=== PATIENT | male | born 1980 | race Caucasian/White ===

== ENCOUNTER 2022-08-30 19:22 | Inpatient (IN) | payer OTHER, SELFPAY ==
--- NOTE | ~2022-08-30 | XR_ITS ---
EXAMINATION: XR FOOT, RIGHT CLINICAL INFORMATION: Heel pain COMPARISON: None available. TECHNIQUE: AP, lateral, and oblique views of the right foot. FINDINGS: There is a small retrocalcaneal enthesophyte. The ankle mortise and subtalar joints are normal. No visible acute fracture or dislocation seen. The soft tissues are normal. XR/XR foot RT 2V IMPRESSION: Small retrocalcaneal enthesophyte. No visible acute fracture or dislocation seen.
--- NOTE | ~2022-08-30 | US_ITS ---
EXAMINATION: US soft tissue right ankle CLINICAL INFORMATION: Swelling edema erythema evaluate for abscess COMPARISON: None available at the time of this dictation. TECHNIQUE: High-frequency linear transducer ultrasound utilized, area of interest scanned, soft tissue subcutaneous area right ankle region. FINDINGS: No ultrasound evidence of soft tissue mass, cyst or abscess, or abnormal distortion. US/US extremity nonvascular IMPRESSION: No ultrasound evidence of loculated fluid collection abscess.
--- NOTE | ~2022-08-30 | XR_ITS ---
EXAMINATION: XR CHEST CLINICAL INFORMATION: Chest pain COMPARISON: None available. TECHNIQUE: Frontal view of the chest was obtained. FINDINGS: No significant abnormality is noted involving the heart, lungs, mediastinum, bony thorax or soft tissues. XR/XR chest 1V IMPRESSION: Unremarkable chest examination.
[2022-08-30 19:28] VITALS: BP 110/80; PULSE 116
--- NOTE | 2022-08-30 19:31 | ECG_ITS ---
Test Reason : CHEST PAIN Blood Pressure : / mmHG Vent. Rate : 104 BPM Atrial Rate : 104 BPM P-R Int : 126 ms QRS Dur : 074 ms QT Int : 326 ms P-R-T Axes : 031 -27 025 degrees QTc Int : 428 ms Sinus tachycardia Otherwise normal ECG No previous ECGs available Referred By: Alessandro Teresa Electronically Signed By:Wilder Saucedo
[2022-08-30 19:41] VITALS: BP 137/92; PULSE 117; RESP 20; TEMP 36.8; O2SAT 95; BMI 28.1
--- NOTE | 2022-08-30 19:43 | ED.CHESTPAIN ---
HPI - Chest Pain General Chief Complaint: General Medical <DEQUAN Youssef - Last Filed: 08/30/22 19:48> Stated Complaint: Chest pain <DEQUAN Youssef - Last Filed: 08/30/22 19:48> Time Seen by Provider: 08/30/22 21:20 <DEQUAN Youssef - Last Filed: 08/30/22 19:48> Source: patient <Kareem Suoth DO - Last Filed: 08/30/22 21:47> Mode of arrival: ambulatory <Kareem South DO - Last Filed: 08/30/22 21:47> Limitations: no limitations <Kareem South DO - Last Filed: 08/30/22 21:47> History of Present Illness MD complaint: chest pain <Kareem South DO - Last Filed: 08/30/22 21:47> Related Data Allergies/Adverse Reactions: Allergies Allergy/AdvReac Type Severity Reaction Status Date / Time No Known Allergies Allergy Verified 08/30/22 19:48 <DEQUAN Youssef - Last Filed: 08/30/22 19:48> [facility] Social History Social History: Social History Advance Directives: No Advance Directives Information Provided: Yes <DEQUAN Youssef - Last Filed: 08/30/22 19:48> Physical Exam Vital Signs: Vital Signs: Last Vital Signs Temp 97.8 F 08/30/22 21:10 Pulse 107 H 08/30/22 21:10 Resp 08/30/22 21:10 BP 133/94 H 08/30/22 21:10 Pulse Ox 96 08/30/22 21:10 O2 Del Method Room Air 08/30/22 21:10 BMI result Body Mass Index 28.1 <DEQUAN Youssef - Last Filed: 08/30/22 19:48> Vital Signs: Last Vital Signs Temp 97.8 F 08/30/22 21:10 Pulse 107 H 08/30/22 21:10 Resp 18 08/30/22 21:10 BP 133/94 H 08/30/22 21:10 Pulse Ox 96 08/30/22 21:10 O2 Del Method Room Air 08/30/22 21:10 BMI result Body Mass Index 28.1 <Kareem South DO - Last Filed: 08/30/22 21:47> Course Course Course Narrative: This is an RME: Additional HPI, ROS, PE not included below will be deferred to primary provider. This is a 41 year old male presenting to the ED for evaluation of CP, palpitations, SOB, bodyaches X24 hours. Patient has been walking for 24 hours straight. Walked from [place] to [place] was found by PD, complaining of muscle aches and pains PE benign Plan- labs, ekg, cpk <DEQUAN Youssef - Last Filed: 08/30/22 19:48> Medical Decision Making Medical Decision Making MDM Narrative: Since patient to wait 2 hours prior to being seen labs did show the patient was in acute rhabdomyolysis also patient fluids at things patient benefit from admission. <Kareem South DO - Last Filed: 08/30/22 21:47> Differential Diagnosis Differential Diagnoses: The differential diagnosis associated with the presentation includes <Kareem South DO - Last Filed: 08/30/22 21:47> Concern for rhabdomyolysis the patient is walking for several hours also with chest pain all rule out ACS that seems less likely will check electrolytes which is patient is not kidney failure. <Kareem South DO - Last Filed: 08/30/22 21:47> Admission/Observation Consideration of admission/observation: Escalation of care including admission/observation considered <Kareem South DO - Last Filed: 08/30/22 21:47> Patient will be admitted for rhabdomyolysis <Kareem South DO - Last Filed: 08/30/22 21:47> Consult Healthcare Provider Management of the patient was discussed with: Hospitalist <Kareem South DO - Last Filed: 08/30/22 21:47> I spoke with Dr. Jacobs about his road malaise who agreed with the patient would benefit from [place]. <Kareem South DO - Last Filed: 08/30/22 21:47> Lab Data Result Diagrams: 08/30/22 20:34 08/30/22 20:34 <DEQUAN Youssef - Last Filed: 08/30/22 19:48> Labs: Lab Results 08/30/22 08/30/22 08/30/22 Range/Units 20:34 20:34 20:34 WBC 20.6 H (4.8-10.8) X10*3/uL RBC 4.90 (4.60-5.80) X10*6/uL Hgb 14.6 (14.0-18.0) g/dl Hct 42.4 (42.0-52.0) % MCV 86.5 (80.0-98.0) fL MCH 29.8 (27.0-33.0) pg MCHC 34.4 (31.0-36.0) g/dl RDW 12.6 (11.0-16.0) % Plt Count 376 (160-400) X10*3/uL MPV 9.1 L (9.4-12.4) fL Immature Gran % (Auto) 0.4 (0.0-0.4) % Neut % (Auto) 88.3 H (45-73) % Lymph % (Auto) 3.9 L (20-40) % Stephen[place] % (Auto) 7.1 (2-11) % Eos % (Auto) 0.1 (0-4) % Baso % (Auto) 0.2 (0-2) % Lymph # (Auto) 0.8 L (1.2-4.9) X10*3/uL [place] # (Auto) 1.5 H (0.1-1.2) X10*3/uL Eos # (Auto) 0.0 (0.0-0.4) X10*3/uL Baso # (Auto) 0.1 (0.0-0.2) X10*3/uL Abs Immat Gran (auto) 0.08 H (0.00-0.03) X10*3/uL Absolute Neuts (auto) 18.1 H (2.0-8.3) x10*3/uL Absolute Nucleated RBC 0.000 (0.0-0.012) X10*3/uL Nucleated RBC % (auto) 0.0 (0.0-0.2) /100WBC D-Dimer High Sensitivty NG/ML Sodium 137 (135-145) mmol/L Potassium 5.1 (3.3-5.1) mmol/L Chloride 100 (96-108) mmol/L Carbon Dioxide 21 L (22-29) mmol/L Anion Gap 21 H (12-20) BUN 28 H (9-16) mg/dL Creatinine 1.18 (0.5-1.4) mg/dL Estim Creat Clear Calc 86.0 Estimated GFR > 60 Random Glucose 110 (60-115) mg/dL Calcium 10.0 (8.4-10.2) mg/dL Magnesium 1.9 (1.6-2.6) mg/dL Total Bilirubin 2.9 H (0.0-1.0) mg/dL AST 53 H (5-37) U/L ALT 48 H (0-40) U/L Alkaline Phosphatase 118 H (39-117) U/L Total Creatine Kinase (38-174) U/L Troponin I High Sens 8.9 (<3.5-35.0) ng/L Total Protein 7.9 (6.5-8.0) g/dL Albumin 4.5 (3.5-5.0) g/dL COVID-19 (CLAUDIA) (Negative) COVID-19 Clin Com 08/30/22 08/30/22 08/30/22 Range/Units 20:34 20:34 20:34 WBC (4.8-10.8) X10*3/uL RBC (4.60-5.80) X10*6/uL Hgb (14.0-18.0) g/dl Hct (42.0-52.0) % MCV (80.0-98.0) fL MCH (27.0-33.0) pg MCHC (31.0-36.0) g/dl RDW (11.0-16.0) % Plt Count (160-400) X10*3/uL MPV (9.4-12.4) fL Immature Gran % (Auto) (0.0-0.4) % Neut % (Auto) (45-73) % Lymph % (Auto) (20-40) % Stephen[place] % (Auto) (2-11) % Eos % (Auto) (0-4) % Baso % (Auto) (0-2) % Lymph # (Auto) (1.2-4.9) X10*3/uL [place] # (Auto) (0.1-1.2) X10*3/uL Eos # (Auto) (0.0-0.4) X10*3/uL Baso # (Auto) (0.0-0.2) X10*3/uL Abs Immat Gran (auto) (0.00-0.03) X10*3/uL Absolute Neuts (auto) (2.0-8.3) x10*3/uL Absolute Nucleated RBC (0.0-0.012) X10*3/uL Nucleated RBC % (auto) (0.0-0.2) /100WBC D-Dimer High Sensitivty < 150 NG/ML Sodium (135-145) mmol/L Potassium (3.3-5.1) mmol/L Chloride (96-108) mmol/L Carbon Dioxide (22-29) mmol/L Anion Gap (12-20) BUN (9-16) mg/dL Creatinine (0.5-1.4) mg/dL Estim Creat Clear Calc Estimated GFR Random Glucose (60-115) mg/dL Calcium (8.4-10.2) mg/dL Magnesium (1.6-2.6) mg/dL Total Bilirubin (0.0-1.0) mg/dL AST (5-37) U/L ALT (0-40) U/L Alkaline Phosphatase (39-117) U/L Total Creatine Kinase 1501 H (38-174) U/L Troponin I High Sens (<3.5-35.0) ng/L Total Protein (6.5-8.0) g/dL Albumin (3.5-5.0) g/dL COVID-19 ([facility]UDIA) Negative (Negative) COVID-19 Clin Com See Note <DEQUAN Youssef - Last Filed: 08/30/22 19:48> Lab Results 08/30/22 08/30/22 08/30/22 Range/Units 20:34 20:34 20:34 WBC 20.6 H (4.8-10.8) X10*3/uL RBC 4.90 (4.60-5.80) X10*6/uL Hgb 14.6 (14.0-18.0) g/dl Hct 42.4 (42.0-52.0) % MCV 86.5 (80.0-98.0) fL MCH 29.8 (27.0-33.0) pg MCHC 34.4 (31.0-36.0) g/dl RDW 12.6 (11.0-16.0) % Plt Count 376 (160-400) X10*3/uL MPV 9.1 L (9.4-12.4) fL Immature Gran % (Auto) 0.4 (0.0-0.4) % Neut % (Auto) 88.3 H (45-73) % Lymph % (Auto) 3.9 L (20-40) % [place] % (Auto) 7.1 (2-11) % Eos % (Auto) 0.1 (0-4) % Baso % (Auto) 0.2 (0-2) % Lymph # (Auto) 0.8 L (1.2-4.9) X10*3/uL [place] # (Auto) 1.5 H (0.1-1.2) X10*3/uL Eos # (Auto) 0.0 (0.0-0.4) X10*3/uL Baso # (Auto) 0.1 (0.0-0.2) X10*3/uL Abs Immat Gran (auto) 0.08 H (0.00-0.03) X10*3/uL Absolute Neuts (auto) 18.1 H (2.0-8.3) x10*3/uL Absolute Nucleated RBC 0.000 (0.0-0.012) X10*3/uL Nucleated RBC % (auto) 0.0 (0.0-0.2) /100WBC D-Dimer High Sensitivty NG/ML Sodium 137 (135-145) mmol/L Potassium 5.1 (3.3-5.1) mmol/L Chloride 100 (96-108) mmol/L Carbon Dioxide 21 L (22-29) mmol/L Anion Gap 21 H (12-20) BUN 28 H (9-16) mg/dL Creatinine 1.18 (0.5-1.4) mg/dL Estim Creat Clear Calc 86.0 Estimated GFR > 60 Random Glucose 110 (60-115) mg/dL Calcium 10.0 (8.4-10.2) mg/dL Magnesium 1.9 (1.6-2.6) mg/dL Total Bilirubin 2.9 H (0.0-1.0) mg/dL AST 53 H (5-37) U/L ALT 48 H (0-40) U/L Alkaline Phosphatase 118 H (39-117) U/L Total Creatine Kinase (38-174) U/L Troponin I High Sens 8.9 (<3.5-35.0) ng/L Total Protein 7.9 (6.5-8.0) g/dL Albumin 4.5 (3.5-5.0) g/dL COVID-19 ([facility]UDIA) (Negative) COVID-19 Clin Com 08/30/22 08/30/22 08/30/22 Range/Units 20:34 20:34 20:34 WBC (4.8-10.8) X10*3/uL RBC (4.60-5.80) X10*6/uL Hgb (14.0-18.0) g/dl Hct (42.0-52.0) % MCV (80.0-98.0) fL MCH (27.0-33.0) pg MCHC (31.0-36.0) g/dl RDW (11.0-16.0) % Plt Count (160-400) X10*3/uL MPV (9.4-12.4) fL Immature Gran % (Auto) (0.0-0.4) % Neut % (Auto) (45-73) % Lymph % (Auto) (20-40) % [place] % (Auto) (2-11) % Eos % (Auto) (0-4) % Baso % (Auto) (0-2) % Lymph # (Auto) (1.2-4.9) X10*3/uL [place] # (Auto) (0.1-1.2) X10*3/uL Eos # (Auto) (0.0-0.4) X10*3/uL Baso # (Auto) (0.0-0.2) X10*3/uL Abs Immat Gran (auto) (0.00-0.03) X10*3/uL Absolute Neuts (auto) (2.0-8.3) x10*3/uL Absolute Nucleated RBC (0.0-0.012) X10*3/uL Nucleated RBC % (auto) (0.0-0.2) /100WBC D-Dimer High Sensitivty < 150 NG/ML Sodium (135-145) mmol/L Potassium (3.3-5.1) mmol/L Chloride (96-108) mmol/L Carbon Dioxide (22-29) mmol/L Anion Gap (12-20) BUN (9-16) mg/dL Creatinine (0.5-1.4) mg/dL Estim Creat Clear Calc Estimated GFR Random Glucose (60-115) mg/dL Calcium (8.4-10.2) mg/dL Magnesium (1.6-2.6) mg/dL Total Bilirubin (0.0-1.0) mg/dL AST (5-37) U/L ALT (0-40) U/L Alkaline Phosphatase (39-117) U/L Total Creatine Kinase 1501 H (38-174) U/L Troponin I High Sens (<3.5-35.0) ng/L Total Protein (6.5-8.0) g/dL Albumin (3.5-5.0) g/dL COVID-19 ([facility]UD[facility]) Negative (Negative) COVID-19 Clin Com See Note <Kareem South DO - Last Filed: 08/30/22 21:47> Discharge Plan Discharge Clinical Impression: Chest pain, Exertional rhabdomyolysis <DEQUAN Youssef - Last Filed: 08/30/22 19:48> Patient Disposition: Admitted As Inpatient <DEQUAN Youssef - Last Filed: 08/30/22 19:48>
[2022-08-30 20:39] LABS: MANUAL DIFF FLAG NO
[2022-08-30 20:40] LABS: Basophils Absolute Auto 0.1 X10*3/uL (0.0-0.2); Basophils Percent Auto 0.2 % (0-2); Eosinophils Percent Auto 0.1 % (0-4); Hematocrit 42.4 % (42.0-52.0); Hemoglobin 14.6 g/dl (14.0-18.0); Imm Gran Abs Auto 0.08 X10*3/uL (0.00-0.03); Imm Gran Pct Auto 0.4 % (0.0-0.4); Lymphocytes Absolute Auto 0.8 X10*3/uL (1.2-4.9); Lymphocytes Percent Auto 3.9 % (20-40); Mean Corpuscular HGB Conc 34.4 g/dl (31.0-36.0); Mean Corpuscular Hemoglobin 29.8 pg (27.0-33.0); Mean Corpuscular Volume 86.5 fL (80.0-98.0); Mean Platelet Volume 9.1 fL (9.4-12.4); Monocytes Absolute Auto 1.5 X10*3/uL (0.1-1.2); Monocytes Percent Auto 7.1 % (2-11); Neutrophils Absolute Auto 18.1 x10*3/uL (2.0-8.3); Neutrophils Percent Auto 88.3 % (45-73); Platelet Count 376 X10*3/uL (160-400); Red Cell Distribution Width 12.6 % (11.0-16.0); White Blood Count 20.6 X10*3/uL (4.8-10.8)
[2022-08-30 20:53] LABS: COVID-19 Test Negative (Negative); IDNOW Serial# 08D9AD1C
[2022-08-30 20:56] LABS: D Dimer High Sensitivity < 150 NG/ML
[2022-08-30 20:58] LABS: Alanine Aminotransferase 48 U/L (0-40); Albumin Level 4.5 g/dL (3.5-5.0); Alkaline Phosphatase 118 U/L (39-117); Anion Gap 21 (12-20); Aspartate Amino Transferase 53 U/L (5-37); Bilirubin Total 2.9 mg/dL (0.0-1.0); Blood Urea Nitrogen 28 mg/dL (9-16); Carbon Dioxide 21 mmol/L (22-29); Chloride 100 mmol/L (96-108); Estimated Glomerular Filt Rate > 60; Glucose Random 110 mg/dL (60-115); Magnesium 1.9 mg/dL (1.6-2.6); Potassium 5.1 mmol/L (3.3-5.1); Sodium 137 mmol/L (135-145); Total Protein 7.9 g/dL (6.5-8.0)
[2022-08-30 21:05] LABS: Troponin-I High Sensitivity 8.9 ng/L (<3.5-35.0)
--- NOTE | 2022-08-30 21:07 | PC.NURSE ---
MD South notified of critical CK.
[2022-08-30 21:10] VITALS: BP 133/94; PULSE 107; RESP 18; TEMP 36.6; O2SAT 96
--- NOTE | 2022-08-30 21:36 | P.HPHOSP_ITS ---
History of Present Illness Date of Service: 08/30/22 Chief Complaint: Bodyache and pain This is a 41-year-old male with no pertinent past medical history and not on prescription medications who presents to the emergency department for evaluation of diffuse body aches. Patient states that he has been walking for the last 24 hours straight. Patient walked from [place] to [place] and got lost. He was found by PD and he was complaining of diffuse muscle aches and pains. Patient states he did not have anything to eat or drink. Had some ice chips along the way. No similar complaints in the past. Patient denies alcohol use but does endorse tobacco smoking. He denies fever, chills, palpitations, shortness of breath, abdominal pain, changes in urinary or bowel habits. In the emergency department, CK found to be significantly elevated Review of Systems Constitutional: Constitutional: Reports fatigue, Reports lethargy and Reports malaise Cardiovascular: Cardiovascular: Reports no additional cardiovascular complaints Respiratory: Respiratory: Reports no additional respiratory complaints Gastrointestinal: Gastrointestinal: Reports no additional gastrointestinal complaints Genitourinary: Genitourinary: Reports no additional male genitourinary complaints Musculoskeletal: Musculoskeletal: Reports myalgias Endocrine: Endocrine: Reports fatigue PMFSH Pertinent family history: No family history of early CAD Surgical History History of appendectomy Social History Advance Directives: No Advance Directives Information Provided: Yes Meds Allergies Allergy/AdvReac Type Severity Reaction Status Date / Time No Known Allergies Allergy Verified 08/30/22 19:48 Active Medications: Current Medications Sodium Chloride (Ns) 1,000 mls @ 999 mls/hr IV .Q1H1M CHIOMA Stop: 08/30/22 22:30 Sodium Chloride (Ns) 1,000 mls @ 200 mls/hr IVCONT .Q5H CHIOMA Stop: 08/31/22 02:44 Pharmacy Consult (Consult Rx Perform Med Rec) 1 each MISCELLANE ONCE PRN PRN Reason: Consult order Home Medications Medication Instructions Recorded Confirmed Last Taken Type No Known Home Meds 08/30/22 08/30/22 Unknown History Physical Exam Vital Signs and Narrative: Vital Signs: Last Vital Signs Temp 97.8 F 08/30/22 21:10 Pulse 107 H 08/30/22 21:10 Resp 18 08/30/22 21:10 BP 133/94 H 08/30/22 21:10 Pulse Ox 96 08/30/22 21:10 O2 Del Method Room Air 08/30/22 21:10 BMI result Body Mass Index 28.1 Middle-aged male lying in bed in no distress Neck supple, no JVD Tachycardic with regular rhythm, S1-S2 heard Regular breath sounds bilaterally, no wheezing or crackles appreciated Abdomen soft nontender, no guarding, no rigidity Patient is awake, alert and oriented to self, place, time and person ; no focal motor deficit Psych: Normal mood No pedal edema Results Labs 08/30/22 20:34 08/30/22 20:34 Labs: Laboratory Results - last 24 hr 08/30/22 08/30/22 08/30/22 20:34 20:34 20:34 MCV 86.5 MCH 29.8 MCHC 34.4 RDW 12.6 Plt Count 376 MPV 9.1 L Immature Gran % (Auto) 0.4 Neut % (Auto) 88.3 H Lymph % (Auto) 3.9 L [place] % (Auto) 7.1 Eos % (Auto) 0.1 Baso % (Auto) 0.2 Lymph # (Auto) 0.8 L [place] # (Auto) 1.5 H Eos # (Auto) 0.0 Baso # (Auto) 0.1 Abs Immat Gran (auto) 0.08 H Absolute Neuts (auto) 18.1 H Absolute Nucleated RBC 0.000 Nucleated RBC % (auto) 0.0 D-Dimer High Sensitivty Anion Gap 21 H Estim Creat Clear Calc 86.0 Estimated GFR > 60 Random Glucose 110 Calcium 10.0 Magnesium 1.9 Total Bilirubin 2.9 H AST 53 H ALT 48 H Alkaline Phosphatase 118 H Total Creatine Kinase Troponin I High Sens 8.9 Total Protein 7.9 Albumin 4.5 COVID-19 ([facility]UDIA) COVID-19 Clin Com 08/30/22 08/30/22 08/30/22 20:34 20:34 20:34 MCV MCH MCHC RDW Plt Count MPV Immature Gran % (Auto) Neut % (Auto) Lymph % (Auto) [place] % (Auto) Eos % (Auto) Baso % (Auto) Lymph # (Auto) [place] # (Auto) Eos # (Auto) Baso # (Auto) Abs Immat Gran (auto) Absolute Neuts (auto) Absolute Nucleated RBC Nucleated RBC % (auto) D-Dimer High Sensitivty < 150 Anion Gap Estim Creat Clear Calc Estimated GFR Random Glucose Calcium Magnesium Total Bilirubin AST ALT Alkaline Phosphatase Total Creatine Kinase 1501 H Troponin I High Sens Total Protein Albumin COVID-19 ([facility]UDIA) Negative COVID-19 Clin Com See Note Assessment and Plan (1) Exertional rhabdomyolysis: Status: Acute Plan This is a 41-year-old male with no pertinent past medical history and not on prescription medications who presents to the emergency department for evaluation of diffuse body aches. #. Rhabdomyolysis, nontraumatic, exertional: Will admit patient and continue IV fluid resuscitation. Symptomatic treatment. Repeat CK in a.m. #. Transaminitis in the setting of above #. Reactive leukocytosis: Defer antibiotics DVT prophylaxis: Lovenox 40 mg daily Full code Regular diet Admit as inpatient and will require two night minimum hospital stay for IV fluid resuscitation Time Spent With Patient Time: Total time managing care of this patient today ____ minutes. Quality Stroke Does the patient have a stroke diagnosis?: No VTE Prior VTE?: No VTE Risk Level:: Medical - moderate - high VTE Device Contraindication: Treatment Not Indicated VTE Drug Contraindication: N/A - Med Ordered
--- NOTE | 2022-08-30 21:51 | PHA.MEDREC ---
Pharmacy Consult ? Medication Reconciliation Pharmacy has completed the medication reconciliation.
[2022-08-30] MEDS: 0.9 % Sodium Chloride 1,000 ML 200 ML IVCONT (22:17)
[2022-08-30] MEDS: 0.9 % Sodium Chloride 1,000 ML 999 ML IV (22:17)
[2022-08-30] MEDS: Enoxaparin Sodium 40 MG/0.4 ML SYRINGE SUBCUT (22:34)
[2022-08-31 01:48] VITALS: BP 119/78; PULSE 97; RESP 18; TEMP 36.6; O2SAT 97
--- NOTE | 2022-08-31 04:51 | PC.NURSE ---
Patient requested sandwich and gingerale at 2am. Vitals stable, no apparent distress or discomfort. He is currently sleeping soundly with even respirations and chest wall rising.
[2022-08-31 05:31] LABS: MANUAL DIFF FLAG NO
[2022-08-31 05:36] LABS: Basophils Absolute Auto 0.1 X10*3/uL (0.0-0.2); Basophils Percent Auto 0.4 % (0-2); Eosinophils Percent Auto 0.1 % (0-4); Hematocrit 37.1 % (42.0-52.0); Hemoglobin 12.9 g/dl (14.0-18.0); Imm Gran Abs Auto 0.04 X10*3/uL (0.00-0.03); Imm Gran Pct Auto 0.3 % (0.0-0.4); Lymphocytes Absolute Auto 2.3 X10*3/uL (1.2-4.9); Mean Corpuscular HGB Conc 34.8 g/dl (31.0-36.0); Mean Corpuscular Hemoglobin 30.1 pg (27.0-33.0); Mean Corpuscular Volume 86.5 fL (80.0-98.0); Monocytes Absolute Auto 1.5 X10*3/uL (0.1-1.2); Monocytes Percent Auto 11.2 % (2-11); Neutrophils Absolute Auto 9.1 x10*3/uL (2.0-8.3); Platelet Count 316 X10*3/uL (160-400); Red Blood Count 4.29 X10*6/uL (4.60-5.80); Red Cell Distribution Width 12.8 % (11.0-16.0)
[2022-08-31 05:51] LABS: Anion Gap 10 (12-20); Blood Urea Nitrogen 24 mg/dL (9-16); Calcium 8.6 mg/dL (8.4-10.2); Carbon Dioxide 22 mmol/L (22-29); Chloride 108 mmol/L (96-108); Creatinine Clr Calc Pharmacy 99.5; Estimated Glomerular Filt Rate > 60; Glucose Random 100 mg/dL (60-115); Potassium 3.8 mmol/L (3.3-5.1); Sodium 136 mmol/L (135-145)
[2022-08-31 07:39] VITALS: BP 134/85; PULSE 85; RESP 15; TEMP 36.6; O2SAT 95
--- NOTE | 2022-08-31 07:40 | MHC.EDTECH ---
pt requested a toothbrush, toothpaste, and mouth wash. Tech went and got the dental supplies, brought it into the pt as well as his breakfast ( if it was cold to please inform me and I could warm it up).
--- NOTE | 2022-08-31 07:53 | PC.NURSE ---
Ambulated to bathroom with steady gait, alert/oriented.
[2022-08-31] MEDS: 0.9 % Sodium Chloride 1,000 ML 125 ML IVCONT ×2 (08:52→18:54)
[2022-08-31] MEDS: 0.9 % Sodium Chloride Flush 3 ML SYRINGE IVFLUSH ×2 (08:52→16:04)
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
--- NOTE | 2022-08-31 13:16 | PM.DS ---
DS: Providers Provider Date of Service: 08/31/22 Date of admission: 08/30/22 21:35 Date of discharge: 08/31/22 Primary care physician: None Physician Attending physician on discharge: Oscar Jane Discharging clinician: Ana Ochoa DS: Diagnosis Discharge Diagnosis (1) Exertional rhabdomyolysis: Status: Acute DS: Summary Hospital Course Hospital Course: From H&P on day of admission This is a 41-year-old male with no pertinent past medical history and not on prescription medications who presents to the emergency department for evaluation of diffuse body aches.? Patient states that he has been walking for the last 24 hours straight.? Patient walked from [place] to [place] and got lost.? He was found by PD and he was complaining of diffuse muscle aches and pains.? Patient states he did not have anything to eat or drink.? Had some ice chips along the way.? No similar complaints in the past.? Patient denies alcohol use but does endorse tobacco smoking.? He denies fever, chills, palpitations, shortness of breath, abdominal pain, changes in urinary or bowel habits. Rhabdomyolysis, nontraumatic, exertional:? CPK slightly elevated at 1500. treated with IV fluid. trending down. Renal function stable. Transaminitis. Likely in the setting of above. no abdominal pain Mild right foot cellulitis. xray negative. US negative for abscess. WBC trending down. Will treat with po doxy Time Spent with Patient Time attestation: Total time managing care of this patient today ____ minutes. Discharge coordination time: Greater than 30 minutes Quality: Safe Use of Opioids Does Pt have an Active Cancer Diagnosis on the Problem List?: No Quality: Stroke Does the patient have a stroke diagnosis?: No Physical Exam Vital Signs: Vital Signs: Last Vital Signs Temp 97.8 F 08/31/22 07:39 Pulse 85 08/31/22 07:39 Resp 15 08/31/22 07:39 BP 134/85 08/31/22 07:39 Pulse Ox 95 08/31/22 07:39 O2 Del Method Room Air 08/31/22 07:39 BMI result Body Mass Index 28.1 Const: General: cooperative, comfortable, alert and awake Nutritional Appearance: average body habitus Orientation/consciousness: patient oriented x3 Resp: Effort & Inspection: normal respiratory effort and able to speak in complete sentences Auscultation: clear to auscultation bilaterally Cardio: Rate: regular rate GI: Inspection: No distended Palpation (GI): Soft to palpation Skin: Other: mild erythema right heel, no open wounds, or fluctuance Neuro: Other: no focal deficits General: patient oriented x3 Extrem: Other: able to move all 4 extremities spontaneously General: Yes full ROM DS: Data Data Completed and Pending Labs on day of discharge: Laboratory Results - last 24 hr 08/30/22 08/30/22 08/30/22 20:34 20:34 20:34 WBC 20.6 H RBC 4.90 Hgb 14.6 Hct 42.4 MCV 86.5 MCH 29.8 MCHC 34.4 RDW 12.6 Plt Count 376 MPV 9.1 L Immature Gran % (Auto) 0.4 Neut % (Auto) 88.3 H Lymph % (Auto) 3.9 L [place] % (Auto) 7.1 Eos % (Auto) 0.1 Baso % (Auto) 0.2 Lymph # (Auto) 0.8 L [place] # (Auto) 1.5 H Eos # (Auto) 0.0 Baso # (Auto) 0.1 Abs Immat Gran (auto) 0.08 H Absolute Neuts (auto) 18.1 H Absolute Nucleated RBC 0.000 Nucleated RBC % (auto) 0.0 D-Dimer High Sensitivty Sodium 137 Potassium 5.1 Chloride 100 Carbon Dioxide 21 L Anion Gap 21 H BUN 28 H Creatinine 1.18 Estim Creat Clear Calc 86.0 Estimated GFR > 60 Random Glucose 110 Calcium 10.0 Magnesium 1.9 Total Bilirubin 2.9 H AST 53 H ALT 48 H Alkaline Phosphatase 118 H Total Creatine Kinase Troponin I High Sens 8.9 Total Protein 7.9 Albumin 4.5 COVID-19 (CLAUDIA) COVID-19 Clin Com 08/30/22 08/30/22 08/30/22 20:34 20:34 20:34 WBC RBC Hgb Hct MCV MCH MCHC RDW Plt Count MPV Immature Gran % (Auto) Neut % (Auto) Lymph % (Auto) [place] % (Auto) Eos % (Auto) Baso % (Auto) Lymph # (Auto) [place] # (Auto) Eos # (Auto) Baso # (Auto) Abs Immat Gran (auto) Absolute Neuts (auto) Absolute Nucleated RBC Nucleated RBC % (auto) D-Dimer High Sensitivty < 150 Sodium Potassium Chloride Carbon Dioxide Anion Gap BUN Creatinine Estim Creat Clear Calc Estimated GFR Random Glucose Calcium Magnesium Total Bilirubin AST ALT Alkaline Phosphatase Total Creatine Kinase 1501 H Troponin I High Sens Total Protein Albumin COVID-19 (CLAUDIA) Negative COVID-19 Clin Com See Note 08/31/22 08/31/22 05:21 05:21 WBC 13.0 H RBC 4.29 L Hgb 12.9 L Hct 37.1 L MCV 86.5 MCH 30.1 MCHC 34.8 RDW 12.8 Plt Count 316 MPV 9.0 L Immature Gran % (Auto) 0.3 Neut % (Auto) 70.0 Lymph % (Auto) 18.0 L [place] % (Auto) 11.2 H Eos % (Auto) 0.1 Baso % (Auto) 0.4 Lymph # (Auto) 2.3 [place] # (Auto) 1.5 H Eos # (Auto) 0.0 Baso # (Auto) 0.1 Abs Immat Gran (auto) 0.04 H Absolute Neuts (auto) 9.1 H Absolute Nucleated RBC 0.000 Nucleated RBC % (auto) 0.0 D-Dimer High Sensitivty Sodium 136 Potassium 3.8 D Chloride 108 Carbon Dioxide 22 Anion Gap 10 L BUN 24 H Creatinine 1.02 Estim Creat Clear Calc 99.5 Estimated GFR > 60 Random Glucose 100 Calcium 8.6 D Magnesium Total Bilirubin AST ALT Alkaline Phosphatase Total Creatine Kinase 1447 H Troponin I High Sens Total Protein Albumin COVID-19 ([facility]) COVID-19 Clin Com Discharge Plan Discharge Patient Disposition: Home, Self-Care Discharge Diagnosis: right foot cellulitis mild rhabdomyolysis elevated LFTs Referrals: Physician,None [Primary Care Provider] - 1 Week Discharge Medications: New doxycycline hyclate 100 mg tablet 100 mg PO BID 5 Days Qty: 10 0RF No Action No Known Home Meds Activity on Discharge: As tolerated Stand Alone Forms: Patient Portal Discharge page
[2022-08-31 14:06] LABS: Alanine Aminotransferase 36 U/L (0-40); Albumin Level 3.7 g/dL (3.5-5.0); Alkaline Phosphatase 92 U/L (39-117); Aspartate Amino Transferase 45 U/L (5-37); Bilirubin Direct 0.7 mg/dL (0.0-0.5); Bilirubin Total 3.2 mg/dL (0.0-1.0); Total Protein 6.2 g/dL (6.5-8.0)
--- NOTE | 2022-08-31 15:30 | P.PNIM_ITS ---
Subjective Subjective Date of Service: 08/31/22 Interval History: seen and examined this morning history obtained with the assistance of a professional nurse follow up for rhabdo reporting right ankle pain. no abdominal pain, nausea, vomiting, chest pain, shortness of breath, fever, chills Review of Systems Review of Systems: Yes all other systems are reviewed and are negative Constitutional Constitutional: Denies chills and Denies fever(s) ENT Ears, Nose, Mouth, and Throat: Denies dizziness Cardiovascular Cardiovascular: Denies chest pain, Denies palpitations and Denies dyspnea Respiratory Respiratory: Denies cough and Denies dyspnea Gastrointestinal Gastrointestinal: Denies abdominal pain, Denies nausea and Denies vomiting Neurologic Neurologic: Denies dizziness Endocrine Endocrine: Denies palpitations Physical Exam Vital Signs: Vital Signs: Last Vital Signs Temp 97.8 F 08/31/22 07:39 Pulse 85 08/31/22 07:39 Resp 15 08/31/22 07:39 BP 134/85 08/31/22 07:39 Pulse Ox 95 08/31/22 07:39 O2 Del Method Room Air 08/31/22 07:39 BMI result Body Mass Index 28.1 Const: General: comfortable, no acute distress, alert and awake Nutritional Appearance: average body habitus Orientation/consciousness: patient oriented x3 Resp: Effort & Inspection: normal respiratory effort, no respiratory distress and no use of accessory muscles Cardio: Rate: regular rate Heart sounds: S1 normal heart sound present and S2 normal heart sound present GI: Inspection: No distended Palpation (GI): Soft to palpation Skin: Other: right heel with small area of redness, tenderness; no fluctuance or open wounds Neuro: Other: grossly nonfocal General: patient oriented x3 Extrem: General: Yes no pedal edema Objective Data Active Medications Acetaminophen (Acetaminophen 325 Mg Tablet) 650 mg PO Q6H PRN PRN Reason: Pain, Mild (Pain Scale 1-3) Doxycycline Monohydrate (Doxycycline Monohydrate 100 Mg Capsule) 100 mg PO Q12H [facility] Enoxaparin Sodium (Enoxaparin Sodium 40 Mg/0.4 Ml Syringe) 40 mg SUBCUT Q24H [facility] Last Admin: 08/30/22 22:34 Dose: 40 mg Documented By: SHABANA Sodium Chloride (Ns) 1,000 mls @ 125 mls/hr IVCONT .Q8H [facility] Last Admin: 08/31/22 08:52 Dose: 125 mls/hr Documented By: VINNY Melatonin (Melatonin 3 Mg Tablet) 6 mg PO BEDTIME PRN PRN Reason: Insomnia Ondansetron HCl (Ondansetron Hcl 4 Mg/2 Ml Vial) 4 mg IVPUSH Q8H PRN PRN Reason: Nausea and Vomiting Pharmacy Consult (Consult Rx Perform Med Rec) 1 each MISCELLANE ONCE PRN PRN Reason: Consult order Sodium Chloride (0.9 % Sodium Chloride Flush 3 Ml Syringe) 3 ml IVFLUSH QSHIFT [facility] Last Admin: 08/31/22 08:52 Dose: 3 ml Documented By: VINNY Labs 08/31/22 05:21 08/31/22 05:21 Labs: Laboratory Results - last 24 hr 08/30/22 08/30/22 08/30/22 20:34 20:34 20:34 MCV 86.5 MCH 29.8 MCHC 34.4 RDW 12.6 Plt Count 376 MPV 9.1 L Immature Gran % (Auto) 0.4 Neut % (Auto) 88.3 H Lymph % (Auto) 3.9 L Daniels % (Auto) 7.1 Eos % (Auto) 0.1 Baso % (Auto) 0.2 Lymph # (Auto) 0.8 L Daniels # (Auto) 1.5 H Eos # (Auto) 0.0 Baso # (Auto) 0.1 Abs Immat Gran (auto) 0.08 H Absolute Neuts (auto) 18.1 H Absolute Nucleated RBC 0.000 Nucleated RBC % (auto) 0.0 D-Dimer High Sensitivty Anion Gap 21 H Estim Creat Clear Calc 86.0 Estimated GFR > 60 Random Glucose 110 Calcium 10.0 Magnesium 1.9 Total Bilirubin 2.9 H Direct Bilirubin AST 53 H ALT 48 H Alkaline Phosphatase 118 H Total Creatine Kinase Troponin I High Sens 8.9 Total Protein 7.9 Albumin 4.5 COVID-19 ([facility]) COVID-19 Clin Com 08/30/22 08/30/22 08/30/22 20:34 20:34 20:34 MCV MCH MCHC RDW Plt Count MPV Immature Gran % (Auto) Neut % (Auto) Lymph % (Auto) Daniels % (Auto) Eos % (Auto) Baso % (Auto) Lymph # (Auto) Daniels # (Auto) Eos # (Auto) Baso # (Auto) Abs Immat Gran (auto) Absolute Neuts (auto) Absolute Nucleated RBC Nucleated RBC % (auto) D-Dimer High Sensitivty < 150 Anion Gap Estim Creat Clear Calc Estimated GFR Random Glucose Calcium Magnesium Total Bilirubin Direct Bilirubin AST ALT Alkaline Phosphatase Total Creatine Kinase 1501 H Troponin I High Sens Total Protein Albumin COVID-19 ([facility]) Negative COVID-19 Clin Com See Note 08/31/22 08/31/22 05:21 05:21 MCV 86.5 MCH 30.1 MCHC 34.8 RDW 12.8 Plt Count 316 MPV 9.0 L Immature Gran % (Auto) 0.3 Neut % (Auto) 70.0 Lymph % (Auto) 18.0 L Daniels % (Auto) 11.2 H Eos % (Auto) 0.1 Baso % (Auto) 0.4 Lymph # (Auto) 2.3 Daniels # (Auto) 1.5 H Eos # (Auto) 0.0 Baso # (Auto) 0.1 Abs Immat Gran (auto) 0.04 H Absolute Neuts (auto) 9.1 H Absolute Nucleated RBC 0.000 Nucleated RBC % (auto) 0.0 D-Dimer High Sensitivty Anion Gap 10 L Estim Creat Clear Calc 99.5 Estimated GFR > 60 Random Glucose 100 Calcium 8.6 D Magnesium Total Bilirubin 3.2 H Direct Bilirubin 0.7 H AST 45 H ALT 36 Alkaline Phosphatase 92 Total Creatine Kinase 1447 H Troponin I High Sens Total Protein 6.2 L Albumin 3.7 COVID-19 ([facility]) COVID-19 Clin Com Assessment and Plan (1) Exertional rhabdomyolysis: Status: Acute Plan This is a 41-year-old male with no pertinent past medical history and not on prescription medications who presents to the emergency department for evaluation of diffuse body aches. Rhabdomyolysis, nontraumatic, exertional: CPK trending down with IVF renal function stable Transaminitis in the setting of above trending down right foot cellulitis xray negative, soft tissue US negative for abscess po doxycycline care team evaluation pending DVT prophylaxis: Lovenox 40 mg daily Full code Regular diet Requires ongoing inpatient hospital stay for IV fluid resuscitation Time Spent With Patient Time: Total time managing care of this patient today ____ minutes. Quality Stroke Does the patient have a stroke diagnosis?: No VTE Prior VTE?: No VTE Risk Level:: Medical - moderate - high VTE Device Contraindication: Treatment Not Indicated VTE Drug Contraindication: N/A - Med Ordered
--- NOTE | 2022-08-31 15:56 | PC.NURSE ---
Pt no longer admitted, however stated he felt unsafe for his life to case management and care team consult has been ordered. Pt denies si/hi
[2022-08-31] MEDS: Doxycycline Monohydrate 100 MG CAPSULE PO (16:03)
--- NOTE | 2022-08-31 16:16 | PC.NURSE ---
Warm wipes provided for patient to clean up in room
--- NOTE | 2022-08-31 16:46 | PC.NURSE ---
Care Team meeting with patient at this time
[2022-08-31 18:24] VITALS: BP 141/88; PULSE 92; RESP 18; O2SAT 96
--- NOTE | 2022-08-31 19:21 | MHC.CARE ---
CARE Team received a consult for this pt due to him becoming tearful and making a statement that I'm afraid for my life . T/W spoke with the pt about how he was feeling and he stated that he just broke up with his girlfriend of 15 years, and he stated that he is afraid for his life. T/W asked what he meant by this and he stated that his ex-girlfriend knows people and he is afraid that they might come after him. T/W asked if he needed help from the police and he stated no. T/W asked about SI/HI/AVH and the pt stated that he had no plan or intent of hurting himself or others. Pt denied ever having AVH and stated that he is a little depressed but that he does not want to hurt himself because of it. T/W asked if he would like OP providers and the pt stated that he is now homeless, has no money for a bus pass or medications, and he doesn't have a phone. T/W gave the [facility] handout to the pt anyway's and informed the pt that he could call them 26/11 for support if he needs/wants it. T/W consulted with Ayleen Rosado [facility] about this case and she stated that he could be d/c when medically appropriate. T/Sophia Ronquillo texted the Med Floor provider Ana Ochoa and she read the message but did not reply.
[2022-08-31] MEDS: Acetaminophen 325 MG TABLET 650 MG PO (19:54)
[2022-08-31 20:02] VITALS: BP 130/86; PULSE 82; RESP 20; TEMP 36.4; O2SAT 93
[2022-08-31] MEDS: Enoxaparin Sodium 40 MG/0.4 ML SYRINGE SUBCUT (22:13)
[2022-08-31 23:57] VITALS: BP 110/55; PULSE 79; RESP 19; TEMP 36.8; O2SAT 95
[2022-09-01 00:12] LABS: Amphetamine Screen Urine Not Detected (Not Detect); Barbiturates, Urine Not Detected (Not Detect); Benzodiazepines Screen Urine Not Detected (Not Detect); Cannabinoid Screen Urine POSITIVE (Not Detect); Cocaine Screen Urine Not Detected (Not Detect); Fentanyl, urine Not Detected (Not Detect); Opiate Screen Urine Not Detected (Not Detect); Phencyclidine Screen Urine Not Detected (Not Detect)
[2022-09-01] MEDS: Doxycycline Monohydrate 100 MG CAPSULE PO (01:50)
[2022-09-01] MEDS: 0.9 % Sodium Chloride 1,000 ML 125 ML IVCONT (01:54)
[2022-09-01 07:28] VITALS: BP 146/89; PULSE 78; RESP 18; TEMP 36.8; O2SAT 97
--- NOTE | 2022-09-01 10:09 | MHC.CM.PN ---
PATIENT'S [id number] IN ROOM TO TRANSPORT PATIENT TO B.I.L'S MOTHER'S HOME TO STAY UNTIL ARRANGEMENT CAN BE MADE FOR PERMANENT HOUSING. AllisonI.L AWARE THAT PATIENT WILL HAVE A PAPER RX THAT NEEDS TO BE FILLED HE IS ALSO AWARE THAT [facility] [employer] IS WORKING TO SECURE INSURANCE RN AWARE OF PLAN
--- NOTE | 2022-09-01 11:05 | P.DS_ITS ---
DS: Providers Provider Date of Service: 09/01/22 Date of admission: 08/30/22 21:35 Primary care physician: None Physician Consults: 08/31/22 13:35 Consult to Care Team Routine Comment: Reason for consultation: mediclly cleared scared for my life DS: Diagnosis Discharge Diagnosis (1) Exertional rhabdomyolysis: Status: Acute DS: Summary Hospital Course Hospital Course: From H&P on day of admission This is a 41-year-old male with no pertinent past medical history and not on prescription medications who presents to the emergency department for evaluation of diffuse body aches.? Patient states that he has been walking for the last 24 hours straight.? Patient walked from [place] to [place] and got lost.? He was found by PD and he was complaining of diffuse muscle aches and pains.? Patient states he did not have anything to eat or drink.? Had some ice chips along the way.? No similar complaints in the past.? Patient denies alcohol use but does endorse tobacco smoking.? He denies fever, chills, palpitations, shortness of breath, abdominal pain, changes in urinary or bowel habits. Rhabdomyolysis, nontraumatic, exertional:? CPK slightly elevated at 1500. treated with IV fluid. trending down. Renal function stable. Transaminitis. Likely in the setting of above. no abdominal pain Mild right foot cellulitis. xray negative. US negative for abscess. WBC trending down. Will treat with po doxy Time Spent with Patient Time attestation: Total time managing care of this patient today ____ minutes. Discharge coordination time: Greater than 30 minutes Quality: Safe Use of Opioids Does Pt have an Active Cancer Diagnosis on the Problem List?: No Quality: Stroke Does the patient have a stroke diagnosis?: No Physical Exam Vital Signs: Vital Signs: Last Vital Signs Temp 98.2 F 09/01/22 07:28 Pulse 78 09/01/22 07:28 Resp 18 09/01/22 07:28 BP 146/89 H 09/01/22 07:28 Pulse Ox 97 09/01/22 07:28 O2 Del Method Room Air 09/01/22 07:28 BMI result Body Mass Index 28.1 Appearing in no acute distress head is normocephalic atraumatic eyes pupils are PERRLA sclera is anicteric mouth throat mucous membranes are intact and moist neck is supple no lymphadenopathy, no JVD noted lung sounds are clear to auscultation heart regular rate rhythm, clear S1, S2 positive bowel sounds, abdomen is soft, nontender neuro patient is alert x3, no focal deficits DS: Data Data Completed and Pending Labs on day of discharge: Laboratory Results - last 24 hr 08/31/22 08/31/22 05:21 23:11 Total Bilirubin 3.2 H Direct Bilirubin 0.7 H AST 45 H ALT 36 Alkaline Phosphatase 92 Total Protein 6.2 L Albumin 3.7 Urine Opiates Screen Not Detected Urine Fentanyl Screen Not Detected Ur Barbiturates Screen Not Detected Ur Phencyclidine Scrn Not Detected Ur Amphetamines Screen Not Detected U Benzodiazepines Scrn Not Detected Urine Cocaine Screen Not Detected U Marijuana (THC) Screen POSITIVE H Discharge Plan Discharge Anticipated Discharge Date/Time: 09/01/22 10:57 Patient Disposition: Home, Self-Care Discharge Diagnosis: right foot cellulitis mild rhabdomyolysis elevated LFTs Discharge Medications: New doxycycline hyclate 100 mg tablet 100 mg PO BID 5 Days Qty: 10 0RF Discharge Orders: Discharge Order (Routine); Ordered 09/01/22 Ordered By: Yue Markham Diet: Advance to usual diet Activity on Discharge: As tolerated Stand Alone Forms: Patient Portal Discharge page Care Plan Goals: Apply for health insurance Health Concerns: Transaminitis Rhabdomyolysis Right foot cellulitis Plan of Treatment: Schedule a primary care provider appointment Take medication as prescribed Assessment: See discharge summary
== END 2022-09-01 11:37 | disposition home or self-care (01) | DRG 558 ==
LOC: HO.ED 21:34 → HO.EDOVER 21:52 → HO.S3 08-31 18:12
PROVIDERS: Physician Assistant; Physician Assistant Medical; Admitting Provider Student in an Organized Health Care Education/Training Program; Emergency Provider Student in an Organized Health Care Education/Training Program; Visit Provider Nurse Practitioner Acute Care
DX: M62.82 Rhabdomyolysis (principal); L03.115 Cellulitis of right lower limb; Z20.822 Contact with and (suspected) exposure to COVID-19
CPT/HCPCS: 36415; 71045; 73620; 76882; 80048; 80053; 80076; 80307; 82550; 83735; 84484; 85025; 85379; 87635; 93005; 99285; J1650